=== PATIENT | female | born 1975 ===

== ENCOUNTER 2025-04-30 09:43 | Day surgery (SDC) | payer OTHER ==
[~2025-04-30] VITALS: Ht 170.2 cm; Wt 79.2 kg
[2025-04-30] VITALS (18 sets, daily range): BP systolic 103–145; BP diastolic 58–98
[~2025-04-30 09:43] MED LIST: Bupivacaine 0.5% W/EPI 1:200000 SDV 30 ML Vial ONE; CeFAZolin Sodium 2,000 MG in NS 100 ML IV SCH; TRAZ100 PO
[2025-04-30] MEDS ORDERED: MELO7.5 PO (09:55)
[2025-04-30] MEDS ORDERED: Adderall Xr 2020 MG PO (09:56)
[2025-04-30] MEDS ORDERED: ACET500 PO (09:57)
[2025-04-30] MEDS ORDERED: FentaNYL Citrate 50 MCG/ML 5 ML Injection ONE ×2 (10:29→11:04)
--- NOTE | 2025-04-30 10:32 | NUR ---
Ambulatory in Day Surgery History, Chart, Medications and Allergies reviewed before start of procedure. Pre-Op teaching done. Pt verbalizes understanding. Patient States Post-Procedure ride home has been arranged.
[2025-04-30] MEDS ORDERED: Magnesium Sulfate 500 MG / ML 2ML Vial ONE (10:48)
[2025-04-30] MEDS ORDERED: Labetalol HCL 5 MG/ML 4ML Injection (Single Dose) ONE (10:49)
[2025-04-30] MEDS ORDERED: Metoclopramide HCl 5MG / ML 2ML Vial ONE (11:04)
[2025-04-30] MEDS ORDERED: Ondansetron HCl 2 MG / ML 2ML Vial ONE (11:04)
[2025-04-30] MEDS ORDERED: Rocuronium Bromide 10 MG/ML 5ML Injection IV ONE (11:04)
[2025-04-30] MEDS ORDERED: Dexamethasone Sodium Phosphate 4 MG/ML 5ML VIAL IV PRN (11:05)
[2025-04-30] MEDS ORDERED: FentaNYL Citrate 50 MCG/ML 2 ML Injection IV PRN ×2 (11:05)
[2025-04-30] MEDS ORDERED: Ondansetron HCl 2 MG / ML 2ML Vial IV PRN ×2 (11:10→12:55)
[2025-04-30] MEDS ORDERED: Morphine Sulfate 4 MG/1 ML Injection IV PRN (11:10)
[2025-04-30] MEDS ORDERED: Metoclopramide HCl 5MG / ML 2ML Vial IV PRN (11:10)
[2025-04-30] MEDS ORDERED: HYDROmorphone HCl/Pf 1MG SYR IV PRN ×2 (11:10→13:00)
[2025-04-30] MEDS ORDERED: Sugammadex Sodium 200 MG/2ML SDV (100 MG/ML) ONE (12:39)
[2025-04-30] MEDS ORDERED: Naloxone HCl 0.4MG / ML 1ML Vial IV PRN (12:55)
[2025-04-30] MEDS ORDERED: FLU VACC TS2025-26(6MOS UP)/PF 45 MCG/0.5 ML SYRINGE IM SCH (13:00)
[2025-04-30] MEDS ORDERED: OxyCODONE 5 mg/Acetamin 325 mg TABLET PO PRN (13:00)
[2025-04-30] MEDS ORDERED: Ketorolac Tromethamine 30mg Vial IV PRN (13:05)
[2025-04-30] MEDS ORDERED: FentaNYL Citrate 50 MCG/ML 2 ML Injection ONE (13:09)
[2025-04-30] MEDS ORDERED: HYDROmorphone HCl/Pf 1MG SYR ONE (13:09)
[2025-04-30] MEDS ORDERED: Ketorolac Tromethamine 30mg Vial ONE (13:09)
--- NOTE | 2025-04-30 14:49 | NUR ---
ARRIVAL TO SURG FLOOR TO FLOOR VIA HOSP BED. A&O x4, VSS, HRR. ATTEMPT TO VOID ON ARRIVAL, UNSUCCESSFUL. LAP SITES x5, C/D/I. STATES MINIMAL PAIN. x1 EPISODE OF N/V, ZOFRAN ADMINISTERED PER EMAR. K-PAD APPLIED. SNACKS & DRINKS GIVEN, FAMILY AT BEDSIDE. CALL LIGHT WITHIN REACH.
--- NOTE | 2025-04-30 17:44 | NUR ---
SHIFT SUMMARY S/P LAP TOTAL HYSTERECTOMY. A&O x4, VSS, HRR. LAP SITES x5 w/WOUND GLUE, C/D/I. TOLERATING REGULAR DIET, x2 EPISODES OF NAUSEA TODAY, MEDICATED PER EMAR. STATES SEVERE PAIN, MEDICATED & MANAGED WELL PER EMAR. TITRATED TO RA. VOIDED SUCCESSFULLY. CURRENTLY RESTING IN BED. CALL LIGHT WITHIN REACH.
[2025-04-30] MEDS ORDERED: CeFAZolin Sodium 2,000 MG in NS 100 ML IV SCH (19:00)
[2025-04-30] MEDS ORDERED: Amphet Asp/Amphet/D-Amphet 10 MG CapCR PO SCH (21:00)
[2025-05-01 02:15] VITALS: BP 109/71
--- NOTE | 2025-05-01 04:55 | NUR ---
SHIFT SUMMARY POD 1 TOTAL HYSTERECTOMY. 5 LAP SITES C/D/I. PAIN MANAGED WELL PER EMAR. PT C/O N&V THROUGHOUT SHIFT, MEDICATED PER EMAR WITH PT STATING A DECREASE IN SYMPTOMS. PT AMBULATING TO RESTROOM WITH 1 PERSON ASSISTANCE. PT CURRENTLY RESTING IN BED WITH EVEN UNLABORED BREATHING VISUALIZED. CALL LIGHT WITHIN REACH.
[2025-05-01 06:04] LABS: BASOPHILS ABSOLUTE AUTO 0.04 K/mm3 (0.00-0.23); BASOPHILS PERCENT AUTO 1 % (0-2); EOSINOPHILS ABSOLUTE AUTO 0.03 K/mm3 (0.00-0.68); EOSINOPHILS PERCENT AUTO 0 % (0-6); Hematocrit 27.6 % (33.0-51.0); Hemoglobin 8.9 g/dL (11.5-16.0); IMMATURE GRAN ABSOLUTE AUTO 0.02 K/mm3 (0.00-0.10); IMMATURE GRAN PERCENT AUTO 0 % (0-1); LYMPHOCYTES ABSOLUTE AUTO 1.82 K/mm3 (0.84-5.20); LYMPHOCYTES PERCENT AUTO 23 % (21-46); MONOCYTES ABSOLUTE AUTO 0.77 K/mm3 (0.16-1.47); MONOCYTES PERCENT AUTO 10 % (4-13); Mean Corpuscular HGB Conc 32.2 g/dL (31.5-36.5); Mean Corpuscular Volume 82 fL (80-100); NEUTROPHILS ABSOLUTE AUTO 5.20 K/mm3 (1.96-9.15); NEUTROPHILS PERCENT AUTO 66 % (41-73); NRBC ABSOLUTE 0.00 K/mm3 (0.00-0.02); NRBC Auto 0.0 /100 WBC (0.0-0.2); Platelet Count 326 K/mm3 (150-400); RDW Coefficient Variation 20.0 % (11.7-14.2); RDW Standard Deviation 58.1 fL (35.1-46.3)
[2025-05-01 07:13] VITALS: BP 114/66
[2025-05-01] MEDS ORDERED: ESTR2 PO (10:47)
[2025-05-01] MEDS ORDERED: PROM25 PO (10:48)
[2025-05-01] MEDS ORDERED: Percocet 5-3251 EACH PO (10:48)
[2025-05-01] MEDS ORDERED: SIME80CH PO (10:50)
--- NOTE | 2025-05-01 11:37 | NUR ---
DISCHARGE NOTE PT IS A/OX4. TOLERATING PO INTAKE. NAUSEA MANAGED PER EMAR. PAIN MANAGED PER EMAR. SBA/IND IN ROOM. PT AND PT FAMILY VERBALIZED UNDERSTANDING OF DC EDUCATION. PT SISTER LEFT W/ PERSONAL BELONGINGS. ESCORTED OUT VIA AT [id number].
== END 2025-05-01 11:40 | disposition home or self-care (01) ==
LOC: ORSCMMR 09:43 → ORD 11:30 → ORSCMMR 11:30 → SURS 13:55 → ORSCMMR 05-01 11:40
PROVIDERS: Obstetrics & Gynecology
PROC: 0UT7FZZ Resection of Bilateral Fallopian Tubes, Via Natural or Artificial Opening With Percutaneous Endoscopic Assistance (ICD-10-PCS; principal; 2025-04-30 11:30)
PROC: 0UT9FZZ Resection of Uterus, Via Natural or Artificial Opening With Percutaneous Endoscopic Assistance (ICD-10-PCS; principal; 2025-04-30 11:30)
PROC: 0UT2FZZ Resection of Bilateral Ovaries, Via Natural or Artificial Opening With Percutaneous Endoscopic Assistance (ICD-10-PCS; principal; 2025-04-30 11:30)
DX: N92.1 Excessive and frequent menstruation with irregular cycle (principal); N80.03 Adenomyosis of the uterus; D50.0 Iron deficiency anemia secondary to blood loss (chronic); N94.10 Unspecified dyspareunia; N94.6 Dysmenorrhea, unspecified; F90.9 Attention-deficit hyperactivity disorder, unspecified type; F41.9 Anxiety disorder, unspecified; Z79.899 Other long term (current) drug therapy
CPT/HCPCS: 36415; 85025; 86850; 86900; 86901; 88307; A9270; J0690; J1171; J1885; J2405; J2704; J2765; J3010; J3475; J7120